=== PATIENT | female | born 2000 | race Hispanic/Latino ===

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

== ENCOUNTER 2021-09-20 11:13 | Emergency (ER) | payer SELFPAY ==
[2021-09-20 12:57] LABS: Absolute Lymphocytes (CBC) 0.8 K/uL (0.7-4.9); Hematocrit 48.4 % (36.0-45.0); Lymphocytes % 6.7 % (15.3-44.8); MPV 7.8 fL (7.6-11.3); RBC Red Blood Cell Count 5.66 M/uL (3.86-4.86)
[2021-09-20] MEDS ORDERED: NA CHLORIDE 0.9% 1,000 ML ONE ×2 (13:00→13:35)
[2021-09-20] MEDS ORDERED: ONDANSETRON 4 MG/2 ML VIAL ONE (13:00)
[2021-09-20 13:08] LABS: Bilirubin Direct 0.3 mg/dL (0-0.2); Bilirubin Total 1.5 mg/dL (0.2-1.0); Potassium 3.8 mmol/L (3.5-5.1); Protein, Total 9.9 g/dL (6.4-8.2)
[2021-09-20 13:48] LABS: White Blood Cell Scan OK (OK)
[2021-09-20 13:49] LABS: Blood Morphology Comment NOT SEEN (NOT SEEN); Platelet Estimate INCR
[2021-09-20 13:57] LABS: Urine Blood Trace-intact (Negative); Urine Glucose Negative (Negative); Urine Protein 1+ (Negative); Urine Specific Gravity 1.015 (1.005-1.030); Urine pH 6.5 (5.0-7.0)
[2021-09-20 14:09] LABS: Urine Specific Gravity/Preg 1.015 (1.005-1.030)
--- NOTE | 2021-09-20 14:26 | RAD REPORT ---
EXAM DESCRIPTION: CTAbdomen Pelvis W Contrast - 09/20/2021 2:12 pm CLINICAL HISTORY: Abdominal pain. vomit/diarr;Abd pain;Pain COMPARISON: Abdomen Pelvis W Contrast dated 12/27/2020 TECHNIQUE: Biphasic CT imaging of the abdomen and pelvis was performed with 100 ml non-ionic IV cont rast. All CT scans are performed using dose optimization technique as appropriate and may include automated exposure control or mA/KV adjustment according to patient size. FINDINGS: The lung bases are clear. The liver, spleen, pancreas, adrenal glands and kidneys are within normal limits. No bowel obstruction, free air, free fluid or abscess. The appendix is normal. A few mildly promine nt small bowel mesenteric lymph nodes are present. No suspicious bony findings. IMPRESSION: A mild mesenteric adenitis is possible. Normal appendix.
--- NOTE | 2021-09-20 14:58 | ER ---
Nurse's Notes [facility] Name: Lucy Bernardo Age: 21 yrs Sex: Female : 2000 Arrival Date: 09/20/2021 Time: 11:13 Bed 16 Private MD: Diagnosis: Vomiting;Diarrhea, unspecified;Weakness Presentation: 09/20 11:36 Chief complaint: Patient states: Nausea, vomiting, upper abdominal pain and weakness ww that started yesterday. Coronavirus screen: Vaccine status: Patient reports being unvaccinated. Client denies travel out of the [place] in the last 14 days. Ebola Screen: Patient denies travel to an Ebola-affected area in the 21 days before illness onset. Initial Sepsis Screen: Does the patient meet any 2 criteria? No. Patient's initial sepsis screen is negative. Does the patient have a suspected source of infection? No. Patient's initial sepsis screen is negative. Risk Assessment: Do you want to hurt yourself or someone else? Patient reports no desire to harm self or others. Onset of symptoms was September 19, 2021. 11:36 Acuity: JOSEPH 3 ww 11:36 Method Of Arrival: Ambulatory ww Triage Assessment: 11:41 General: Appears uncomfortable, Behavior is cooperative. Pain: Complains of pain in ww right upper quadrant and left upper quadrant. Neuro: Level of Consciousness is awake, Oriented to person, place, time, situation, Gait is steady, Speech is normal. Cardiovascular: Patient's skin is warm and dry. Respiratory: Airway is patent Respiratory effort is even, unlabored, Respiratory pattern is regular, symmetrical. GI: Reports upper abdominal pain, nausea, vomiting. 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 - Social history:: Smoking status: Patient denies any tobacco usage or history of. - Family history:: not pertinent. Screenin:42 Abuse screen: Denies threats or abuse. Denies injuries from another. Nutritional ww screening: No deficits noted. Tuberculosis screening: No symptoms or risk factors identified. Fall Risk None identified. Vital Signs: 11:36 BP 108 / 88; Pulse 78; Resp 18; Temp 98.4; Pulse Ox 99% ; Weight 90.72 kg; Height 5 ft. ww 4 in. (162.56 cm); Pain 4/10; 12:20 BP 110 / 80; Pulse 70; Resp 16; Temp 98.6; Pulse Ox 98% ; Pain 0/10; cb5 15:00 BP 116 / 77; Pulse 70; Resp 16; Temp 98.6; Pulse Ox 99% ; Pain 0/10; cb5 11:36 Body Mass Index 34.33 (90.72 kg, 162.56 cm) ww ED Course: 11:13 Patient arrived in ED. as 11:41 Triage completed. ww 11:41 Arm band placed on right wrist. ww 12:25 Herminio Keenan MD is Attending Physician. [facility] 12:44 Mahsa Corrigan, RN is Primary Nurse. cb5 12:44 Liver (Hepatic) Function Sent. cb5 12:44 Lipase Sent. cb5 12:44 Basic Metabolic Panel Sent. cb5 12:46 CBC with Automated Diff Sent. cb5 12:46 Basic Metabolic Panel Sent. cb5 12:46 CBC with Diff Sent. cb5 12:46 Inserted saline lock: 20 gauge in left antecubital area, using aseptic technique. Blood jw7 collected. 12:49 Hepatic Function Sent. cb5 12:49 Lipase Sent. cb5 14:00 Call light in reach. Side rails up X 1. Side rails up X2. cb5 14:11 CT Abd/Pelvis - IV Contrast Only In Process Unspecified. EDMS 15:34 IV discontinued. cb5 15:34 No provider procedures requiring assistance completed. cb5 Administered Medications: 13:02 Drug: NS 0.9% 1000 ml Route: IV; Rate: 1 bolus; Site: left antecubital; cb5 13:02 Drug: Zofran (Ondansetron) 4 mg Route: IVP; Site: left antecubital; cb5 13:31 Drug: NS 0.9% 1000 ml Route: IV; Rate: 1 bolus; Site: left antecubital; cb5 Outcome: 14:58 Discharge ordered by . arnold 15:33 Discharged to home cb5 15:33 Condition: stable 15:33 Discharge instructions given to 15:34 Patient left the ED. cb5 Signatures: Dispatcher [employer] Herminio Gallardo MD MD cha Martinez, Amelia as Wood, Whitney, RN RN ww Boman, Colleen, RN RN cb5 Rohini Bishop 7
--- NOTE | 2021-09-20 14:58 | EDPHYS ---
Physician Documentation [facility] Name: Lucy eBrnardo Age: 21 yrs Sex: Female : 2000 Arrival Date: 09/20/2021 Time: 11:13 Bed 16 Private MD: AUREA Physician Herminio Keenan HPI: 09/20 13:23 This 21 yrs old Female presents to ER via Ambulatory with complaints of arnold Vomiting/Diarrhea, Weakness. 13:23 The patient presents to the emergency department with nausea, vomiting, diarrhea, that arnold is continuous. Onset: The symptoms/episode began/occurred 1 day(s) ago. Possible causes: unknown. The symptoms are aggravated by nothing. The symptoms are alleviated by nothing. Associated signs and symptoms: Pertinent positives: abdominal pain, diarrhea, vomiting. Severity of symptoms: At their worst the symptoms were mild in the emergency department the symptoms are unchanged. The patient has not experienced similar symptoms in the past. 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 - Social history:: Smoking status: Patient denies any tobacco usage or history of. - Family history:: not pertinent. ROS: 13:23 Constitutional: Negative for fever, chills, and weight loss, Eyes: Negative for injury, arnold pain, redness, and discharge, ENT: Negative for injury, pain, and discharge, Neck: Negative for injury, pain, and swelling, Cardiovascular: Negative for chest pain, palpitations, and edema, Respiratory: Negative for shortness of breath, cough, wheezing, and pleuritic chest pain, Back: Negative for injury and pain, : Negative for injury, bleeding, discharge, and swelling, MS/Extremity: Negative for injury and deformity, Skin: Negative for injury, rash, and discoloration, Neuro: Negative for headache, weakness, numbness, tingling, and seizure, Psych: Negative for depression, anxiety, suicide ideation, homicidal ideation, and hallucinations, Allergy/Immunology: Negative for hives, rash, and allergies, Endocrine: Negative for neck swelling, polydipsia, polyuria, polyphagia, and marked weight changes, Hematologic/Lymphatic: Negative for swollen nodes, abnormal bleeding, and unusual bruising. 13:23 Abdomen/GI: Positive for abdominal pain, nausea and vomiting, diarrhea. Exam: 13:23 Constitutional: This is a well developed, well nourished patient who is awake, alert, arnold and in no acute distress. Head/Face: Normocephalic, atraumatic. Eyes: Pupils equal round and reactive to light, extra-ocular motions intact. Lids and lashes normal. Conjunctiva and sclera are non-icteric and not injected. Cornea within normal limits. Periorbital areas with no swelling, redness, or edema. ENT: Nares patent. No nasal discharge, no septal abnormalities noted. Tympanic membranes are normal and external auditory canals are clear. Oropharynx with no redness, swelling, or masses, exudates, or evidence of obstruction, uvula midline. Mucous membranes moist. Neck: Trachea midline, no thyromegaly or masses palpated, and no cervical lymphadenopathy. Supple, full range of motion without nuchal rigidity, or vertebral point tenderness. No Meningismus. Chest/axilla: Normal chest wall appearance and motion. Nontender with no deformity. No lesions are appreciated. Cardiovascular: Regular rate and rhythm with a normal S1 and S2. No gallops, murmurs, or rubs. Normal PMI, no JVD. No pulse deficits. Respiratory: Lungs have equal breath sounds bilaterally, clear to auscultation and percussion. No rales, rhonchi or wheezes noted. No increased work of breathing, no retractions or nasal flaring. Back: No spinal tenderness. No costovertebral tenderness. Full range of motion. Female : Normal external genitalia. Skin: Warm, dry with normal turgor. Normal color with no rashes, no lesions, and no evidence of cellulitis. MS/ Extremity: Pulses equal, no cyanosis. Neurovascular intact. Full, normal range of motion. Neuro: Awake and alert, GCS 15, oriented to person, place, time, and situation. Cranial nerves II-XII grossly intact. Motor strength 5/5 in all extremities. Sensory grossly intact. Cerebellar exam normal. Normal gait. Psych: Awake, alert, with orientation to person, place and time. Behavior, mood, and affect are within normal limits. 13:23 Abdomen/GI: Inspection: abdomen appears normal, Bowel sounds: normal, Palpation: mild abdominal tenderness, in all quadrants, Liver: no appreciated palpable abnormalities, Hernia: not appreciated. Vital Signs: 11:36 BP 108 / 88; Pulse 78; Resp 18; Temp 98.4; Pulse Ox 99% ; Weight 90.72 kg; Height 5 ft. ww 4 in. (162.56 cm); Pain 4/10; 12:20 BP 110 / 80; Pulse 70; Resp 16; Temp 98.6; Pulse Ox 98% ; Pain 0/10; cb5 15:00 BP 116 / 77; Pulse 70; Resp 16; Temp 98.6; Pulse Ox 99% ; Pain 0/10; cb5 11:36 Body Mass Index 34.33 (90.72 kg, 162.56 cm) ww MDM: 12:25 Patient medically screened. [facility] 13:25 Differential diagnosis: Nonspecific abd pain, gastritis, cholecystitis, pancreatitis. arnold Data reviewed: vital signs, nurses notes, lab test result(s), radiologic studies, CT scan. Data interpreted: garnisher: rate is 70 beats/min, rhythm is regular, Pulse oximetry: on room air is 98 %. Counseling: I had a detailed discussion with the patient and/or guardian regarding: the historical points, exam findings, and any diagnostic results supporting the discharge/admit diagnosis, lab results, radiology results. 09/20 12:26 Order name: Basic Metabolic Panel [facility] 09/20 12:26 Order name: CBC with Diff [facility] 09/20 12:26 Order name: Hepatic Function [facility] 09/20 12:26 Order name: Lipase [facility] 09/20 12:27 Order name: Basic Metabolic Panel; Complete Time: 13:22 [facility] 09/20 12:27 Order name: CBC with Automated Diff; Complete Time: 14:08 [facility] 09/20 12:27 Order name: Liver (Hepatic) Function; Complete Time: 13:22 [facility] 09/20 12:27 Order name: Lipase; Complete Time: 13:22 [facility] 09/20 13:03 Order name: CBC Smear Scan; Complete Time: 14:08 [facility] 09/20 13:23 Order name: CT Abd/Pelvis - IV Contrast Only [facility] 09/20 13:57 Order name: Urine Dipstick-Ancillary; Complete Time: 14:08 [facility] 09/20 13:58 Order name: Test Urine - POC sp 09/20 12:26 Order name: IV Saline Lock; Complete Time: 12:49 arnold 09/20 12:26 Order name: Labs collected and sent; Complete Time: 12:50 arnold 09/20 12:26 Order name: Urine Test (obtain specimen) arnold 09/20 12:26 Order name: Urine Dipstick-Ancillary (obtain specimen) arnold Administered Medications: 13:02 Drug: NS 0.9% 1000 ml Route: IV; Rate: 1 bolus; Site: left antecubital; cb5 13:02 Drug: Zofran (Ondansetron) 4 mg Route: IVP; Site: left antecubital; cb5 13:31 Drug: NS 0.9% 1000 ml Route: IV; Rate: 1 bolus; Site: left antecubital; cb5 Disposition Summary: 09/20/21 14:58 Discharge Ordered Location: Home [facility] Problem: new arnold Symptoms: have improved arnold Condition: Stable arnold Diagnosis - Vomiting arnold - Diarrhea, unspecified arnold - Weakness arnold Followup: [facility] - With: Private Physician - When: 2 - 3 days - Reason: Recheck today's complaints, Continuance of care, Re-evaluation by your physician Discharge Instructions: - Discharge Summary Sheet arnold - Food Choices to Help Relieve Diarrhea, Adult arnold - Diarrhea, Adult arnold - Weakness arnold - Fatigue arnold - Diarrhea, Adult, [id number] arnold - Weakness, [id number] [facility] Forms: - Medication Reconciliation Form arnold - Thank You Letter arnold - Antibiotic Education arnold - Prescription Opioid Use arnold - Work release form pm1 Prescriptions: - Zofran 4 mg Oral Tablet - take 1 tablet by ORAL route every 12 hours As needed; 20 tablet; Refills: 0, arnold Product Selection Permitted Signatures: Dispatcher [employer] Herminio Gallardo MD MD cha Wood, Whitney, RN RN Mahsa Bryant, RN RN cb5
[2021-09-20 15:42] VITALS: TEMP 98.6
[2021-09-20 15:44] VITALS: BP 116/77; O2SAT 99
== END 2021-09-20 15:34 | disposition home or self-care (01) ==
LOC: ER 11:13
DX: R19.7 Diarrhea, unspecified (principal); R53.1 Weakness
CPT/HCPCS: 36415; 74177; 80048; 80076; 81003; 81025; 83690; 85025; 96374; 99284; J2405; J7030; Q9967

== ENCOUNTER 2021-12-22 19:50 | Emergency (ER) | payer SELFPAY ==
[2021-12-22] MEDS ORDERED: ONDANSETRON 4 MG (ODT) TAB ONE (22:38)
[2021-12-22 23:06] LABS: Urine Blood Trace-lysed (Negative); Urine Glucose Negative (Negative); Urine Protein 1+ (Negative); Urine Specific Gravity 1.025 (1.005-1.030)
[2021-12-22 23:28] LABS: Urine Specific Gravity/Preg 1.025 (1.005-1.030)
[2021-12-23 01:06] LABS: Absolute Lymphocytes (CBC) 2.6 K/uL (0.7-4.9); Hematocrit 39.4 % (36.0-45.0); Lymphocytes % 22.7 % (15.3-44.8); MPV 7.5 fL (7.6-11.3); RBC Red Blood Cell Count 4.71 M/uL (3.86-4.86)
[2021-12-23] MEDS ORDERED: NA CHLORIDE 0.9% 1,000 ML ONE (01:07)
[2021-12-23 01:31] LABS: Potassium 3.2 mmol/L (3.5-5.1)
--- NOTE | 2021-12-23 02:31 | ER ---
Nurse's Notes [facility] Name: Lucy Bernardo Age: 21 yrs Sex: Female : 2000 Arrival Date: 12/22/2021 Time: 19:52 Bed 23 Private MD: Diagnosis: Less than 8 weeks gestation of ;Vomiting;Diarrhea, unspecified;Acute upper respiratory infection, unspecified Presentation: 12/22 20:50 Chief complaint: Patient states: she started having a stuffy nose, congestion, cough, bb vomiting, diarrhea x 4 days. Coronavirus screen: congestion, cough unrelated to allergies, vomiting. Client presents with at least one sign or symptom that may indicate coronavirus-19. Ebola Screen: No symptoms or risks identified at this time. Initial Sepsis Screen: Does the patient meet any 2 criteria? No. Patient's initial sepsis screen is negative. Does the patient have a suspected source of infection? No. Patient's initial sepsis screen is negative. Risk Assessment: Do you want to hurt yourself or someone else? Patient reports no desire to harm self or others. Onset of symptoms was December 18, 2021. 20:50 Method Of Arrival: Ambulatory bb 20:50 Acuity: JOSEPH 3 bb Triage Assessment: 20:52 General: Appears in no apparent distress. Behavior is calm, cooperative. Pain: bb Complains of pain in abdomen Pain currently is 0 out of 10 on a pain scale. Neuro: Level of Consciousness is awake, alert, obeys commands, Oriented to person, place, time, situation. Cardiovascular: Capillary refill < 3 seconds Patient's skin is warm and dry. Respiratory: Respiratory effort is even, unlabored, Respiratory pattern is regular, Breath sounds are clear bilaterally. GI: Reports lower abdominal pain, diarrhea, vomiting. Derm: Skin is pink, warm \T\ dry. Musculoskeletal: Circulation, motion, and sensation intact. FLOUR INSPECTOR: 20:52 pt states status is unknown has not had a period recently bb Historical: - Allergies: 20:52 No Known Allergies; bb - Home Meds: 20:52 None [Active]; bb - PMHx: 20:52 None; bb - PSHx: 20:52 None; bb - Immunization history:: Client reports having NOT received the Covid vaccine. - Social history:: Smoking status: Patient denies any tobacco usage or history of. Screenin:00 Abuse screen: Denies threats or abuse. Nutritional screening: No deficits noted. ke1 Tuberculosis screening: No symptoms or risk factors identified. Fall Risk None identified. Assessment: 21:00 Cardiovascular: Heart tones S1 S2. Respiratory: Respiratory effort is even, unlabored, ke1 Respiratory pattern is regular, symmetrical. 21:30 Reassessment: Patient states symptoms have not improved. Respiratory:. GI: Reports ke1 nausea. 22:30 Reassessment: Patient appears in no apparent distress at this time. No changes from [facility] previously documented assessment. Cardiovascular: Denies chest pain. Respiratory: Respiratory effort is even, unlabored. 23:30 Reassessment: Patient states feeling better. Patient states symptoms have improved. ke1 12/23 00:30 Reassessment: Patient appears in no apparent distress at this time. No changes from [facility] previously documented assessment. Patient is alert, oriented x 3, equal unlabored respirations, skin warm/dry/pink. 02:06 Reassessment: Patient appears in no apparent distress at this time. No changes from [facility] previously documented assessment. Cardiovascular: Reports Denies chest pain, Respiratory: Respiratory effort is even, unlabored, Respiratory pattern is regular, symmetrical. 03:07 Reassessment: Patient is alert, oriented x 3, equal unlabored respirations, skin bb warm/dry/pink. pt verbalized understanding of and agrees to plan of care discharge instructions given pt ambulated with steady gait to exit accompanied by family. Vital Signs: 12/22 20:50 BP 107 / 70; Pulse 85; Resp 16 S; Temp 98.3(TE); Pulse Ox 100% on R/A; Weight 90.72 kg bb (R); Height 5 ft. 4 in. (162.56 cm) (R); Pain 0/10; 12/23 03:07 BP 104 / 76; Pulse 72; Resp 16 S; Pulse Ox 100% on R/A; bb 12/22 20:50 Body Mass Index 34.33 (90.72 kg, 162.56 cm) ED Course: 12/22 19:52 Patient arrived in ED. ja2 20:52 Triage completed. bb 20:52 Arm band placed on Patient placed in waiting room, Patient notified of wait time. bb 20:56 Herminio Grey PA is PHCP. cp 20:56 Herminio Keenan MD is Attending Physician. cp 21:31 Wero Jones, RN is Primary Nurse. ke1 12/23 00:22 US Transvaginal Ob In Process Unspecified. EDAL 00:44 Inserted saline lock: 22 gauge in right antecubital area, using aseptic technique. vc1 Blood collected. 02:07 Patient has correct armband on for positive identification. Bed in low position. Call ke1 light in reach. 03:08 No provider procedures requiring assistance completed. IV discontinued, intact, bb bleeding controlled, No redness/swelling at site. Pressure dressing applied. Administered Medications: 12/22 22:38 Drug: Zofran (Ondansetron) 4 mg Route: PO; ke1 23:30 Follow up: Response: Marked relief of symptoms ke1 12/23 01:09 Drug: NS 0.9% 1000 ml Route: IV; Rate: 1 bolus; Site: right antecubital; ke1 02:51 Follow up: IV Status: Completed infusion; IV Intake: 950ml ke1 03:01 Drug: Potassium Effervescent Tablet 25 mEq Route: PO; bb 03:02 Follow up: Response: Medication administered at discharge. bb Intake: 02:51 IV: 950ml; Total: 950ml. ke1 Outcome: 02:30 Discharge ordered by . arnold 03:08 Discharged to home ambulatory, with family. danae 03:08 Condition: stable 03:08 Discharge instructions given to patient, Instructed on discharge instructions, follow up and referral plans. medication usage, Demonstrated understanding of instructions, follow-up care, medications, Prescriptions given X 1. 03:08 Patient left the ED. bb Signatures: Dispatcher [employer] EDAL Herminio Keenan MD MD cha Ballard, Brenda RN RN Herminio Duarte PA PA cp Alexander, Jessica ja2 Calcote, Vanessa, RN RN vc1 Wero Jones RN RN ke1 Corrections: (The following items were deleted from the chart) 12/22 20:57 20:50 Resp 16bpm; Spontaneous; 90.72 kg Reported; Height 5 ft. 4 in. Reported; BMI: bb 34.3; Pain 0/10; bb
--- NOTE | 2021-12-23 02:31 | EDPHYS ---
Physician Documentation [facility] Name: Lucy Bernardo Age: 21 yrs Sex: Female : 2000 Arrival Date: 12/22/2021 Time: 19:52 Bed 23 Private MD: ED Physician Herminio Keenan HPI: 12/22 21:00 This 21 yrs old Female presents to ER via Ambulatory with complaints of cp Congestion, Nausea, Diarrhea. 21:00 The patient or guardian reports cough, that is intermittent, congestion. Onset: The cp symptoms/episode began/occurred 2 day(s) ago. 21:00 Associated signs and symptoms: Pertinent positives: diarrhea, sore throat, vomiting, cp Pertinent negatives: chest pain, fever, abdominal pain. 23:20 Patient's urine test positive for . Patient unaware but reports recent vaginal cp spotting. CNA GNA: 20:52 pt states status is unknown has not had a period recently bb Historical: - Allergies: 20:52 No Known Allergies; bb - Home Meds: 20:52 None [Active]; bb - PMHx: 20:52 None; bb - PSHx: 20:52 None; bb - Immunization history:: Client reports having NOT received the Covid vaccine. - Social history:: Smoking status: Patient denies any tobacco usage or history of. ROS: 21:05 Constitutional: Positive for poor PO intake, Negative for chills, fever. cp 21:05 Eyes: Negative for injury, pain, redness, and discharge. cp 21:05 ENT: Positive for nasal congestion, Negative for drainage from ear(s), sore throat, difficulty swallowing, difficulty handling secretions. 21:05 Cardiovascular: Negative for chest pain. 21:05 Respiratory: Positive for cough, Negative for wheezing. 21:05 Abdomen/GI: Positive for nausea, vomiting, and diarrhea, Negative for abdominal pain. 21:05 : Positive for vaginal bleeding, Negative for urinary symptoms. 21:05 Neuro: Negative for altered mental status, headache, weakness. cp 21:05 All other systems are negative. Exam: 21:10 Constitutional: The patient appears in no acute distress, alert, awake, non-toxic, well cp developed, well nourished, obese. 21:10 Head/Face: Normocephalic, atraumatic. cp 21:10 Eyes: Periorbital structures: appear normal, Conjunctiva: normal, no exudate, no injection, Sclera: no appreciated abnormality, Lids and lashes: appear normal, bilaterally. 21:10 ENT: External ear(s): are unremarkable, Nose: is normal, Mouth: Lips: moist, Oral mucosa: pink and intact, moist, Posterior pharynx: Airway: no evidence of obstruction, patent, Tonsils: are normal in appearance, erythema, is not appreciated, exudate, is not appreciated. 21:10 Neck: ROM/movement: is normal, is supple, without pain, no range of motions limitations, no meningismus. 21:10 Chest/axilla: Inspection: normal. 21:10 Cardiovascular: Rate: normal, Rhythm: regular. 21:10 Respiratory: the patient does not display signs of respiratory distress, Respirations: normal, no use of accessory muscles, no retractions, labored breathing, is not present, Breath sounds: are clear throughout, no decreased breath sounds, no stridor, no wheezing. 21:10 Abdomen/GI: Inspection: abdomen appears normal, Palpation: abdomen is soft and non-tender, in all quadrants. 21:10 Back: pain, is absent, ROM is normal. 21:10 Neuro: Orientation: to person, place \\T\\ time. Mentation: is normal. Vital Signs: 20:50 BP 107 / 70; Pulse 85; Resp 16 S; Temp 98.3(TE); Pulse Ox 100% on R/A; Weight 90.72 kg bb (R); Height 5 ft. 4 in. (162.56 cm) (R); Pain 0/10; 12/23 03:07 BP 104 / 76; Pulse 72; Resp 16 S; Pulse Ox 100% on R/A; bb 12/22 20:50 Body Mass Index 34.33 (90.72 kg, 162.56 cm) bb MDM: 12/22 21:27 Patient medically screened. cp 12/23 00:00 Differential diagnosis: bronchitis, flu, URI. cp 02:27 Differential diagnosis: viral gastroenteritis, PREGANCY. Data reviewed: vital signs, [facility] nurses notes, lab test result(s), radiologic studies, ultrasound. Data interpreted: Pulse oximetry: on room air is 100 %. Counseling: I had a detailed discussion with the patient and/or guardian regarding: the historical points, exam findings, and any diagnostic results supporting the discharge/admit diagnosis, lab results, radiology results, the need for outpatient follow up, for definitive care, a family practitioner, an OB/Gyne specialist. 12/22 20:58 Order name: COVID-19 SARS RT PCR (Document "Date of Onset" if Symptomatic); Complete cp Time: 02:05 12/22 20:58 Order name: Influenza Screen (a \\T\\ B); Complete Time: 02:05 cp 12/22 23:07 Order name: Urine Dipstick-Ancillary; Complete Time: 23:12 EDMS 12/22 23:12 Interpretation: Normal except: UKET 4+; UBLD Trace-lysed; UPROT 1+. cp 12/22 23:08 Order name: Urine --Ancillary (enter results); Complete Time: 23:44 wm 12/22 23:44 Interpretation: URINE PREG POS; Reviewed. cp 12/22 23:15 Order name: Abo/rh Typing; Complete Time: 02:05 cp 12/22 23:15 Order name: Basic Metabolic Panel; Complete Time: 02:05 cp 12/22 20:58 Order name: Urine Dipstick-Ancillary (obtain specimen); Complete Time: 23:07 cp 12/22 20:58 Order name: Urine Test (obtain specimen); Complete Time: 23:07 cp 12/22 23:15 Order name: CBC with Diff; Complete Time: 02:05 cp 12/22 23:15 Order name: Quantitative Hcg; Complete Time: 02:05 cp 12/22 23:16 Order name: US Transvaginal Ob cp 12/22 22:52 Order name: PO challenge; Complete Time: 23:07 cp 12/22 23:15 Order name: IV Saline Lock; Complete Time: 00:59 cp 12/22 23:15 Order name: Labs collected and sent; Complete Time: 00:59 cp 12/22 23:15 Order name: NPO; Complete Time: 00:59 cp Administered Medications: 12/22 22:38 Drug: Zofran (Ondansetron) 4 mg Route: PO; ke1 23:30 Follow up: Response: Marked relief of symptoms ke1 12/23 01:09 Drug: NS 0.9% 1000 ml Route: IV; Rate: 1 bolus; Site: right antecubital; ke1 02:51 Follow up: IV Status: Completed infusion; IV Intake: 950ml ke1 03:01 Drug: Potassium Effervescent Tablet 25 mEq Route: PO; bb 03:02 Follow up: Response: Medication administered at discharge. bb Disposition: 02:26 Co-signature as Attending Physician, Herminio Keenan MD I agree with the assessment and arnold plan of care. Disposition Summary: 12/23/21 02:30 Discharge Ordered Location: Home arnold Problem: new arnold Symptoms: have improved arnold Condition: Stable arnold Diagnosis - Less than 8 weeks gestation of arnold - Vomiting arnold - Diarrhea, unspecified arnold - Acute upper respiratory infection, unspecified arnold Followup: arnold - With: Private Physician - When: 2 - 3 days - Reason: Recheck today's complaints, Continuance of care, Re-evaluation by your physician Discharge Instructions: - Discharge Summary Sheet arnold - Food Choices to Help Relieve Diarrhea, Adult arnold - Diarrhea, Adult arnold - Care arnold - Upper Respiratory Infection, Adult arnold - Cool Mist Vaporizer arnold - Upper Respiratory Infection, Adult, [id number] arnold - Diarrhea, Adult, [id number] arnold - Vomiting, Adult arnold Forms: - Medication Reconciliation Form arnold - Thank You Letter arnold - Antibiotic Education arnold - Prescription Opioid Use arnold Prescriptions: - Zofran 4 mg Oral Tablet - take 1 tablet by ORAL route every 12 hours As needed; 20 tablet; Refills: 0, arnold Product Selection Permitted Signatures: Dispatcher [employer] Herminio Gallardo MD MD cha Ballard, Brenda RN Herminio Sadler PA PA cp Ebrottie, Kouassi, RN RN ke1 Gini Sanchez PA PA sb3 Corrections: (The following items were deleted from the chart) 00:20 06 21:05 ENT: Positive for sore throat, Negative for drainage from ear(s), cp difficulty swallowing, difficulty handling secretions, cp 12/24 00:12/23 21:00 The patient or guardian reports cough, that is intermittent, congestion, cp cp 12/24 00:12/23 21:00 Onset: The symptoms/episode began/occurred 2 day(s) ago, cp cp
[2021-12-23] MEDS ORDERED: POTASSIUM 25 MEQ EFFERV TAB ONE (03:04)
[2021-12-23 03:41] VITALS: BP 104/76; O2SAT 100
--- NOTE | 2021-12-23 14:46 | RAD REPORT ---
EXAM DESCRIPTION: Transvaginal OB RadLex: US PELVIS TRANSVAGINAL CLINICAL HISTORY: ABD CRAMPING, . Last menstrual period 10/29/2021. Estimated gestational age by LMP is 7 weeks and 5 days. COMPARISON: None. TECHNIQUE: Real-time grayscale and color Doppler images of the pelvis was obtained utilizing transv aginal technique. FINDINGS: Uterus: Measures 5 x 6.2 x 8.3 cm. Single intrauterine with estimated he art rate of 152 bmp. pole and yolk sac are visualized. The yolk sac (placental precursor) is lo cated anteriorly. Subjectively normal amount of amniotic fluid. No obvious subchorionic hemorrhage. Spicer-rump length: 1.12 cm, corresponding to a gestational age of 7 weeks 2 days. Right ovary: 3.5 x 1.5 x 1.6 cm (volume 4.3 mL). Normal arterial flow. No concerning lesions. There i s a functional cyst in the right ovary which measures 1.4 cm. Left ovary is obscured by bowel shadowing. Cul-de-sac: No free fluid. IMPRESSION: 1. Single intrauterine measuring 7 weeks and 2 days by ultrasound (JULIETH 2022). 2. Functional cyst in the right ovary, possibly a corpus luteum cyst. Nonvisualization of left ovar y. Electronically signed by: Ashlee Lockett MD 12/23/2021 12:35 AM CDT Due to temporary technical issues with the PACS/Fluency reporting system, reports are being signed by the in house radiologists without review as a courtesy to insure prompt reporting. The interpreting radiologist is fully responsible for the content of the report.
== END 2021-12-23 03:08 | disposition home or self-care (01) ==
LOC: ER 19:50
DX: O99.511 Diseases of the respiratory system complicating pregnancy, first trimester (principal); J06.9 Acute upper respiratory infection, unspecified; O21.9 Vomiting of pregnancy, unspecified; O99.611 Diseases of the digestive system complicating pregnancy, first trimester; R19.7 Diarrhea, unspecified; Z3A.01 Less than 8 weeks gestation of pregnancy
CPT/HCPCS: 36415; 76817; 80048; 81003; 81025; 84702; 85025; 86900; 86901; 87804; 96360; 96361; 99284; J7030; U0003